=== PATIENT | male | born 1960 | race Caucasian/White ===

== ENCOUNTER 2025-02-21 17:20 | Emergency (ER) | payer OTHER, SELFPAY ==
[2025-02-21 17:25] VITALS: BP 120/95
--- NOTE | 2025-02-21 17:44 | ED.GENMED ---
History of Present Illness
General
Chief Complaint: Skin Problem
Time Seen by Provider: 02/21/25 17:44
History of Present Illness
History of Present Illness:
PAST MEDICAL HISTORY AND REVIEW OF OLD RECORDS
- No old records available for review in [facility].
Note:
CHIEF COMPLAINT(S)
Eye-related visual impairment leading to lack of depth perception and subsequent facial injury.
HISTORY OF PRESENT ILLNESS
The patient is a 64-year-old male with a history of retinal detachment, which had been previously managed with the placement of a silicone bubble in his right eye. The bubble is intended to assist in maintaining retinal attachment. It was
anticipated that the bubble would be removed this week, but due to unforeseen circumstances, it remains in place, resulting in impaired vision and depth perception. The patient reports a recent event where his impaired depth perception led to a
misstep while entering his house, resulting in a fall and a laceration. The impact occurred against a planter and another metal object.
Upon presentation, the patient exhibited a laceration on his face. He currently denies any severe headaches, flashing lights in his vision, nausea, vomiting, or extreme fatigue. He has no current prescriptions for anticoagulants like warfarin or
novel oral anticoagulants. 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
CHRONIC MEDICAL CONDITIONS SIGNIFICANTLY AFFECTING CARE
- History of Unina-Njdxwdlxh-Mpoue syndrome (surgically repaired)
- Retinal detachment with ongoing treatment
SOCIAL HISTORY
The patient reports having ceased the use of blood thinners and drugs.
PHYSICAL EXAM
General: Alert, no acute distress.
Skin: Warm, dry. Presence of facial laceration.
Head: Abrasion noted to the right side of the forehead, there are 2 lacerations of total length 6 cm at the left eyebrow that extends towards the forehead and just inferior to the left eyebrow
Neck: Supple, trachea midline. No midline C-spine tenderness
Eye, Ears, Nose, Mouth, and Throat: Oral mucosa moist. Visual impairment in the right eye due to retained silicone bubble.
Cardiovascular: Normal peripheral perfusion, no edema.
Respiratory: Respirations are non-labored.
Gastrointestinal: Abdomen nondistended.
Back: Normal range of motion, normal alignment.
Musculoskeletal: Normal ROM, normal strength.
Neurological: Alert and oriented to person, place, time, and situation, no focal neurological deficit observed.
Psychiatric: Cooperative, appropriate mood & affect.
PROBLEM LIST
Acute:
- Facial laceration due to fall
Chronic:
- Retinal detachment with silicone bubble for stabilization
- History of Ymyuu-Tokbhobfr-Pltvc syndrome (surgically repaired)
PLAN
- The patients facial laceration will be repaired with local anesthesia.
- Discussed the possibility of a CT scan should symptoms such as severe headache or new neurological symptoms develop.
- Evaluate the need for an updated tetanus booster; administer as part of preventive care.
DIFFERENTIAL DIAGNOSIS
The Differential Diagnosis includes, in no particular order and is not limited to:
- Traumatic brain injury
- Subdural hematoma
- Concussion
- Orbital fracture
- Zygomatic arch fracture
- Nasal fracture
- Maxillary sinus fracture
- Retinal tear
- Hyphema
- Acute angle-closure glaucoma
Disposition:
SUMMARY OF ENCOUNTER
The patient was seen due to a facial laceration resulting from a fall attributed to impaired depth perception. The laceration was repaired using three deep sutures and nine surface sutures after discussing and deciding against plastic closure with
the patient and his girlfriend. The tetanus immunization status was updated, and an antibiotic ointment was applied. CT imaging was considered but not ordered as the patient showed no worrisome symptoms and is not on anticoagulation or antiplatelet
therapy.
PLAN
- Facial laceration was repaired using sutures.
- Tetanus booster was administered.
- Antibiotic ointment was applied to the wound.
- Monitor the laceration for any signs of infection.
PATIENT EDUCATION AND COUNSELING
The patient was informed about the signs of infection to watch for in the laceration area, such as redness, warmth, swelling, or increased pain, and was advised to seek medical attention if these developed. The use of antibiotic ointment was
explained for infection prevention.
FOLLOW-UP INSTRUCTIONS
Please schedule a follow-up visit in the next 7-10 days for suture removal and wound assessment.
MEDICAL DECISION MAKING
-Complexity of Data Reviewed: Chronic conditions affecting care including retinal detachment with silicone bubble for stabilization and history of Wccoq-Wziwntqwq-Qilyj syndrome (surgically repaired). Differential diagnosis included traumatic brain
injury, subdural hematoma, concussion, orbital fracture, zygomatic arch fracture, nasal fracture, maxillary sinus fracture, retinal tear, hyphema, and acute angle-closure glaucoma.
-Data:
Category 1
No additional imaging or lab tests were performed as CT imaging was considered unnecessary due to the lack of worrisome symptoms and absence of anticoagulation or antiplatelet use.
Category 2
No additional information.
Category 3
No additional information.
-Risk:
Prescription medication was considered, but ultimately not given after discussion with patient/family.
DIAGNOSIS
- Facial laceration due to fall, ICD-10-CM: S01.81XA
Phy Exam
Physical Exam
Physical Exam:
See HPI
Course
Orders/Labs/Results
Orders:
Orders
02/21/25 18:26
Tetanus/Diphth/Acelpertussis [Adacel] 0.5 ml IM .ONCE ONE
Vital Signs
Initial and Last Documented VS:
Initial Vital Signs
Temp Pulse Resp BP Pulse Ox
36.8 C 91 16 120/95 100
02/21/25 17:02/21/25 17:02/21/25 17:02/21/25 17:02/21/25 17:25
Last Documented Vital Signs
Temp Pulse Resp BP Pulse Ox
36.8 C 91 16 120/95 100
02/21/25 17:25 02/21/25 17:25 02/21/25 17:25 02/21/25 17:25 02/21/25 17:44
Procedures
Laceration Closure
Left Eye brow:
Status of Wound: clean
Size of Wound in cm: 6
Description of Wound Edges: sharp
Preparation: cleaned with saline and cleaned with Betadine
Anesthesia: 1% Lidocaine with epi
Revision/Debridement: routine- no revision
Wound exploration: explored to base- no FB
Type of Closure: layered closure and interrupted sutures
Skin Closure Material: 5-0 prolene and 5-0 vicryl
Additional information:
Three 5-0 Vicryl placed in the muscle layer and then nine 5-0 Prolene placed in the skin layer
*Pulse Oximetry
SaO2: 100
Oxygen Mode of Delivery: Room air
Patient hypoxic: no
*Critical Care Note
Total Time (30-74mins, 75-104mins- exclusive of procedures): Not Applicable
ED Attending Note
-
Portions of this chart may have been created with voice recognition software.� Occasional wrong word or��sound alike� substitutions may have occurred due to the inherent limitations of voice recognition software.
Discharge Plan
Departure
Patient Disposition: Home (Routine Discharge)
Date of Disposition: 02/21/25
Time of Disposition: 18:24
Patient with high blood pressure during this ER visit?: Yes
Discharge Problem:
Laceration of face
Instructions: BLOOD PRESSURE, Laceration
Activity Restrictions/Additional Instructions:
I placed 3 Vicryl deep stitches in the muscle layer. I then placed 9 Prolene stitches in the skin layer. Have the skin sutures removed in 7 days by your primary care doctor. Return here if worse or other concerns.
Interventions
Interventions:
*Risk Screen - Suicide Last Done: 02/21/25 17:25
*General Assessment Last Done: 02/21/25 17:49
*Neglect/Abuse Screening Last Done: 08/20/25 17:25
*ED- Fall Risk Assessment Last Done: 02/21/25 17:25
*ED COVID-19 Vaccine History Last Done: 02/21/25 17:49
Discharge Date and Time
Print Language: YAKUT
[2025-02-21] MEDS: ADACEL 0.5 ML IM (18:33)
== END 2025-02-21 19:01 | disposition home or self-care (01) ==
LOC: EMR 17:20
PROVIDERS: EMERGENCY PHYSICIAN Emergency Medicine
DX: S01.112A Laceration without foreign body of left eyelid and periocular area, initial encounter (principal); X58.XXXA Exposure to other specified factors, initial encounter; Z23 Encounter for immunization; Z86.74 Personal history of sudden cardiac arrest
CPT/HCPCS: 99282; 12014; 90471; 90715

== ENCOUNTER 2025-04-30 17:36 | Emergency (ER) | payer SELFPAY ==
[2025-04-30 17:43] VITALS: BP 182/112
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
[2025-04-30 21:00] VITALS: BP 166/109
== END 2025-04-30 21:15 | disposition home or self-care (01) ==
LOC: EMR 17:36
PROVIDERS: EMERGENCY PHYSICIAN Student in an Organized Health Care Education/Training Program
DX: S06.0X0A Concussion without loss of consciousness, initial encounter (principal); S16.1XXA Strain of muscle, fascia and tendon at neck level, initial encounter; V43.52XA Car driver injured in collision with other type car in traffic accident, initial encounter; Y92.410 Unspecified street and highway as the place of occurrence of the external cause
CPT/HCPCS: 99284; 70450; 72125